=== PATIENT | male | born 1985 | race Caucasian/White ===

== ENCOUNTER 2020-04-13 15:27 | Outpatient (REF) | payer OTHER, SELFPAY ==
[2020-04-13 17:09] LABS: COVID-19 Test Negative (Negative)
== END 2020-04-13 15:28 | disposition home or self-care (01) ==
LOC: HO.LAB 15:27
PROVIDERS: Visit Provider Internal Medicine
DX: Z20.828 Contact with and (suspected) exposure to other viral communicable diseases (principal)
CPT/HCPCS: 87635

== ENCOUNTER 2020-04-30 12:31 | Outpatient (REF) | payer OTHER, SELFPAY ==
[2020-04-30 13:05] LABS: COVID-19 Test Negative (Negative)
== END 2020-04-30 12:32 | disposition home or self-care (01) ==
LOC: HO.LAB 12:31
PROVIDERS: Visit Provider Internal Medicine
DX: Z20.828 Contact with and (suspected) exposure to other viral communicable diseases (principal)
CPT/HCPCS: 87635; C9803